=== PATIENT | female | born 1955 | race Caucasian/White ===

== ENCOUNTER → 2018-09-14 | Outpatient (CLI) | payer OTHER ==
[~2018-09-14] MED LIST: ETODOLAC 400 M400 M1 PO; NORVASC5 MG PO; OMEPRAZOLE 20 M20 M1 PO; SYNTHROID125 MC1 PO
--- NOTE | 2018-09-20 11:03 | EKG ---
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1955 Requested By: González Bertrand Order Number: [id number] Reading MD: Temo Aguilera Measurements Intervals [place] Rate: 66 P: 51 AL: 167 QRS: 15 QRSD: 100 T: 51 QT: 416 QTc: 436 Interpretive Statements Sinus bradycardia Atrial premature complexes consecutive No previous ECG available for comparison Electronically Signed On 09-20-2018 11:02:57 [employer] by Temo Aguilera [email or web address] <ELECTRONICALLY SIGNED> By: Temo Aguilera MD, [facility] 09/20/18 1102 0942 0942 Temo Aguilera MD, FACC /EPI
== END ==
LOC: M.MRI 16:57
DX: S83.241A Other tear of medial meniscus, current injury, right knee, initial encounter (principal); S83.281A Other tear of lateral meniscus, current injury, right knee, initial encounter; M17.11 Unilateral primary osteoarthritis, right knee; M76.891 Other specified enthesopathies of right lower limb, excluding foot; M25.461 Effusion, right knee; M22.41 Chondromalacia patellae, right knee; X58.XXXA Exposure to other specified factors, initial encounter; Y93.89 Activity, other specified; Y92.89 Other specified places as the place of occurrence of the external cause; Y99.8 Other external cause status

== ENCOUNTER 2018-10-04 06:40 | Inpatient (IN) | payer OTHER ==
[2018-09-20 09:36] LABS: HEMATOCRIT 44.3 % (37.0-47.0); HEMOGLOBIN 14.8 gm/dL (12.0-15.0); MCH 30.7 pg (26.0-34.0); MCHC 33.5 g/dL (28.0-37.0); MCV 91.7 fL (80.0-100.0); MPV 8.7 fl. (7.2-11.1); RBC 4.83 mil/uL (4.20-5.00); RDW-CV 14.2 % (10.5-14.5); WBC 5.9 thou/uL (4.0-11.0)
[2018-09-20 09:46] LABS: URINE BILIRUBIN NEGATIVE (Negative); URINE BLOOD TRACE (Negative); URINE CLARITY CLEAR; URINE COLOR YELLOW; URINE GLUCOSE-RANDOM NEGATIVE (Negative); URINE KETONES NEGATIVE (Negative); URINE LEUKOCYTES-REFLEX NEGATIVE (Negative); URINE NITRITE-REFLEX NEGATIVE (Negative); URINE PROTEIN NEGATIVE (Negative); URINE UROBILINOGEN 0.2 E.U./dl (0.2-1.0)
[2018-09-20 09:51] LABS: ALBUMIN 3.9 g/dL (3.4-5.0); CREATININE 1.1 mg/dL (0.6-1.3); POTASSIUM 3.7 mmol/L (3.5-5.1); TOTAL BILIRUBIN 0.6 mg/dL (<0.1-1.0); TOTAL PROTEIN 7.5 g/dL (6.4-8.2)
[~2018-10-04] VITALS: Ht 182.9 cm; Wt 117.9 kg
[2018-10-04] MEDS ORDERED: ZANTAC 150MG T150 MG PO (10:14)
[2018-10-04 10:18] VITALS: BP 154/72
[2018-10-04] MEDS ORDERED: CIPRO500 MG PO (10:30)
[2018-10-05] VITALS (8 sets, daily range): BP systolic 134–155; BP diastolic 59–76
[2018-10-05 04:10] LABS: HEMATOCRIT 41.7 % (37.0-47.0); HEMOGLOBIN 13.8 gm/dL (12.0-15.0)
[2018-10-05] MEDS ORDERED: XARELTO10 MG PO (09:01)
[2018-10-05] MEDS ORDERED: HYDROCODON-ACE1 EAC7 PO (09:01)
[2018-10-06] VITALS (7 sets, daily range): BP systolic 123–152; BP diastolic 60–67
[2018-10-06 05:24] LABS: HEMOGLOBIN 12.7 gm/dL (12.0-15.0)
[2018-10-06] MEDS ORDERED: PERCOCET PO (11:45)
--- NOTE | 2018-10-11 23:20 | OP ---
[address] [address] OPERATIVE REPORT Name: JUNG RADER Room: [address] IN .R.#: [id number] Admission: 10/04/18 Attend Phys: Lisa Harmon Discharge: 10/06/18 Date of : 59 Report #: [id number] THIS REPORT FOR: //name// CC: Katie Ureña DATE OF SERVICE: 10/04/2018 PREOPERATIVE DIAGNOSIS: Right knee osteoarthritis. POSTOPERATIVE DIAGNOSIS: Right knee osteoarthritis. PROCEDURE: Right total knee arthroplasty. SURGEON: González Bertrand II, D.O. MAILROOM SUPERVISOR: JIM Strauss ANESTHESIA: General endotracheal. ESTIMATED BLOOD LOSS: 50 mL. ANTIBIOTICS: Ancef preoperatively. DRAINS: Medium Hemovac. COMPLICATIONS: None. CONDITION: The patient is stable to recovery room. IMPLANTS: Listed in the operative record and progress note. BRIEF HISTORY: The patient was seen in the preoperative area. Preoperative H and P was performed. Site was marked, questions were answered. Risks and benefits were discussed with the patient in detail about surgery. The patient wished to proceed assumed all risks. DESCRIPTION OF PROCEDURE: The patient was taken to the operative suite and placed supine on the operating table, given appropriate anesthesia. A well-padded tourniquet was applied to the upper thigh, which was inflated to 300 mmHg after gravity exsanguination. The operative knee was sterilely prepped and draped. Surgery began by a midline incision. This was carried down to the subcutaneous tissues. A medial parapatellar arthrotomy was performed and carried down to bone. The patella was then everted and excess soft tissue removed from around the femur. Femoral cutting block was then applied, checked [facility] [address] [place] [address] OPERATIVE REPORT Name: JUNG RADER Francis Room: [address]#: [id number] Admission: 10/04/18 Attend Phys: Lisa Harmon Discharge: 10/06/18 Date of : 59 Report #: [id number] with a drop florencio for rotational alignment, pinned in appropriate position and appropriate cuts were made. A 4-in-1 cutting block was then applied, checked for rotational alignment, pinned in appropriate position and appropriate cuts were made. Tibia was then exposed. Then excess meniscus was removed. Retractors were placed along the collateral ligaments. The tibial cutting block was applied, pinned in appropriate position, checked with a drop florencio for rotational alignment and slope and appropriate cut was made. The tibial bone was removed. The tibial base plate was then applied and checked for rotational alignment with the drop florencio and pinned in appropriate position. The femur was then applied and box cut was reamed. This was then trialed with the appropriate spacer, which showed excellent fit and fill, excellent stability of the knee throughout all range of motion. The patella was then reamed in appropriate fashion and sized to appropriate size. Three peg holes were drilled and it was then trialed and found to have excellent flexion and extension and excellent tracking of the patella within the groove. These trials were then removed. The tibia was punched in appropriate fashion. Bone ends were cleansed with Pulsavac irrigation. Cement was mixed and applied to the final implants. These were then malleted in position and held the knee in extension and compressed to allow cement to cure. After it cured, excess was removed utilizing a [place] and osteotome. The wound was then copiously irrigated and the final spacer was then malleted in position. The tourniquet was deflated. Hemostasis was obtained with electrocautery. Pain cocktail was injected. PRP gel was sprayed through internal aspects of the knee. Medium Hemovac drain was applied. Capsule was closed with #2 FiberWire and #1 Vicryl in [id number] fashion. Skin was closed with 2-0 Vicryl and running 3-0 Monocryl. Dermabond and sterile dressing was applied. Jeet wrap and PolarCare applied. The patient transported to recovery room in stable condition. Counts were correct throughout the procedure. <ELECTRONICALLY SIGNED> By: González Bertrand II, 10/11/18 2320 0819 1009Robsierra Bertrand II DO /nt
== END 2018-10-06 14:06 | disposition home health service (06) | DRG 470 ==
LOC: M.PRE → M.SUR 06:40 → EDSTATUS 06:40 → M.PRE 06:42 → M.TBA 09:44 → M.PRE 10:13 → M.ORTHSURG 14:52 → M.PRE 16:57 → M.ORTHSURG 10-06 14:06
PROVIDERS: Orthopaedic Surgery; ADMIT Internal Medicine
PROC: 0SRC069 Replacement of Right Knee Joint with Oxidized Zirconium on Polyethylene Synthetic Substitute, Cemented, Open Approach (ICD-10-PCS; principal; 2018-10-04)
DX: M17.11 Unilateral primary osteoarthritis, right knee (principal); E03.9 Hypothyroidism, unspecified; I10 Essential (primary) hypertension; Z90.710 Acquired absence of both cervix and uterus; Z86.711 Personal history of pulmonary embolism

== ENCOUNTER → 2019-03-06 | Outpatient (CLI) | payer OTHER ==
[~2019-03-06] MED LIST changes: +CIPRO500 MG PO; +HYDROCODON-ACE1 EAC7 PO; +PERCOCET PO; +XARELTO10 MG PO; +ZANTAC 150MG T150 MG PO
== END ==
LOC: M.MRI 03-05 17:30
DX: S83.282A Other tear of lateral meniscus, current injury, left knee, initial encounter (principal); M25.762 Osteophyte, left knee; M71.22 Synovial cyst of popliteal space [Baker], left knee; X58.XXXA Exposure to other specified factors, initial encounter; Y93.89 Activity, other specified; Y92.89 Other specified places as the place of occurrence of the external cause; Y99.8 Other external cause status

== ENCOUNTER 2019-04-02 07:02 | Inpatient (IN) | payer OTHER ==
[2019-03-21 09:12] LABS: HEMOGLOBIN 14.2 gm/dL (12.0-15.0); MCH 30.5 pg (26.0-34.0); MCHC 33.9 g/dL (28.0-37.0); MCV 89.9 fL (80.0-100.0); MPV 8.5 fl. (7.2-11.1); RBC 4.67 mil/uL (4.20-5.00); RDW-CV 14.8 % (10.5-14.5)
[2019-03-21 09:15] LABS: URINE BILIRUBIN NEGATIVE (Negative); URINE BLOOD 1+ (Negative); URINE CLARITY CLEAR; URINE COLOR YELLOW; URINE GLUCOSE-RANDOM NEGATIVE (Negative); URINE KETONES NEGATIVE (Negative); URINE LEUKOCYTES-REFLEX NEGATIVE (Negative); URINE NITRITE-REFLEX NEGATIVE (Negative); URINE PROTEIN NEGATIVE (Negative); URINE SPECIFIC GRAVITY <= 1.005 (1.005-1.030); URINE UROBILINOGEN 0.2 E.U./dl (0.2-1.0)
[2019-03-21 09:20] LABS: PROTIME 10.1 Seconds (9.20-11.50)
[2019-03-21 09:23] LABS: SQUAMOUS 0-3 Few /LPF (0-3)
[2019-03-21 09:24] LABS: BACTERIA-REFLEX 1-9 Few /HPF (None Seen); CASTS None Seen /LPF (None Seen); CRYSTALS None Seen /LPF (None Seen); MUCUS None Seen strn/LPF (None Seen); URINE RBC 0-2 Rare /HPF (0-2); URINE WBC-REFLEX 0-5 Rare /HPF (0-5)
[2019-03-21 09:33] LABS: ALBUMIN 3.8 g/dL (3.4-5.0); CALCIUM 8.6 mg/dL (8.5-10.1); CREATININE 1.1 mg/dL (0.6-1.3); POTASSIUM 4.2 mmol/L (3.5-5.1); TOTAL BILIRUBIN 0.6 mg/dL (<0.1-1.0); TOTAL PROTEIN 7.6 g/dL (6.4-8.2)
--- NOTE | 2019-03-21 11:37 | EKG ---
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
[~2019-04-02] VITALS: Ht 180.3 cm; Wt 117.9 kg
--- NOTE | ~2019-04-02 | OP ---
[facility] [address] [place] [address] OPERATIVE REPORT Name: JUNG RADER Room: [address] M.R.#: [id number] Admission: 04/02/19 Attend Phys: Lisa Harmon Discharge: Date of : 59 Report #: [id number] THIS REPORT FOR: //name// CC: Katie Ureña DATE OF SERVICE: 04/02/2019 PREOPERATIVE DIAGNOSIS: Left knee osteoarthritis. POSTOPERATIVE DIAGNOSIS: Left knee osteoarthritis. PROCEDURE: Left total knee arthroplasty. SURGEON: González Bertrand II, DO. CONFERENCE RESERVATIONIST: JIM Strauss. ANESTHESIA: General endotracheal. ESTIMATED BLOOD LOSS: 50 mL. ANTIBIOTICS: Ancef preoperatively. DRAINS: Medium Hemovac. COMPLICATIONS: None. CONDITION: The patient is stable to recovery room. IMPLANTS: Listed in the operative record and progress note. BRIEF HISTORY: The patient had previous right total knee arthroplasty done over the last 6 months, states he has had extremely good results, elected to proceed with a left total knee replacement. Has proceeded with injections and anti-inflammatories without relief and has failed conservative management. The patient's site was marked. Questions were answered. Risks and benefits were discussed with the patient in detail about the surgery. The patient wished to proceed and assuming all risks. DESCRIPTION OF PROCEDURE: The patient was taken to the operative suite and placed supine on the operating table and given appropriate anesthesia. A well-padded tourniquet applied to upper thigh, was inflated to 300 mmHg after gravity exsanguination. The operative knee was sterilely prepped and draped. Surgery began by midline incision. This was carried down through [address] [address] OPERATIVE REPORT Name: JUNG RADER CHAVEZ Room: [address] M.R.#: [id number] Admission: 04/02/19 Attend Phys: Lisa Harmon Discharge: Date of : 59 Report #: [id number]. A medial parapatellar arthrotomy was performed and carried down to bone. Patella was then everted and excess soft tissue removed from the femur. The femoral cutting block was then applied, checked with a drop florencio for rotational alignment, pinned in appropriate position and appropriate cuts were made. A 4-in-1 cutting block was then applied, checked for rotational alignment, pinned in appropriate position and appropriate cuts were made. The tibia was then exposed. Excess meniscus was removed. Retractor was placed along the collateral ligaments. The tibial cutting block was applied, pinned in appropriate position, checked with a drop and rotational alignment and slope and appropriate cut was made. The tibial bone was removed. Tibial base plate was then applied, checked for rotational alignment with a drop florencio, pinned in appropriate position. Femur was then applied and a box cut was reamed. This was then trialed with the appropriate spacer, which showed excellent fit and fill and excellent stability with knee through all range of motion. The patella was then reamed in appropriate fashion and sized for appropriate size. Three peg holes were drilled and it was then trialed and showed excellent flexion and extension and excellent tracking of the patella within the groove. These trials were then removed. The tibia was punched in appropriate fashion. Bone ends were cleansed with Pulsavac irrigation and cement was mixed and applied to the final implants. Knee was then malleted in position and held the knee in extension and compressed to allow the cement to cure. After it cured, excess was removed using a [place] and osteotome. The wound was then copiously irrigated and the final spacer was then malleted into position. Tourniquet was deflated. Hemostasis was obtained with electrocautery. The pain cocktail was injected. PRP gel was sprayed throughout the internal aspects of the knee. A median Hemovac drain was applied. Capsule was closed with #2 FiberWire and 1 Vicryl in [id number] fashion. Skin was closed with 2-0 Vicryl and running 3-0 Monocryl. Dermabond and sterile dressing applied. Jeet wrap and PolarCare applied. The patient transported to recovery room in stable condition. Counts were correct throughout the procedure. By: 0811 [id number] Bertrand II, DO /nt
[2019-04-02 10:47] VITALS: BP 142/78
[2019-04-02 12:30] VITALS: BP 145/67
[2019-04-02 16:30] VITALS: BP 108/59
[2019-04-02 19:35] VITALS: BP 116/62
[2019-04-03 00:40] VITALS: BP 126/60
[2019-04-03 04:03] VITALS: BP 112/59
[2019-04-03 04:17] LABS: HEMATOCRIT 35.6 % (37.0-47.0); HEMOGLOBIN 11.7 gm/dL (12.0-15.0)
[2019-04-03 08:00] VITALS: BP 124/67
[2019-04-03 12:31] VITALS: BP 124/67
[2019-04-03] MEDS ORDERED: PERCOCET PO (13:11)
[2019-04-03] MEDS ORDERED: XARELTO10 MG PO (13:12)
== END 2019-04-03 16:25 | disposition home health service (06) | DRG 470 ==
LOC: M.TBA 07:02 → M.PRE 07:36 → M.ORTHSURG 12:16 → M.PRE 12:19 → M.ORTHSURG 04-03 16:25
PROVIDERS: Orthopaedic Surgery; ADMIT Internal Medicine
PROC: 0SRD0J9 Replacement of Left Knee Joint with Synthetic Substitute, Cemented, Open Approach (ICD-10-PCS; principal; 2019-04-02)
DX: M17.12 Unilateral primary osteoarthritis, left knee (principal); D68.59 Other primary thrombophilia; I10 Essential (primary) hypertension; E03.9 Hypothyroidism, unspecified; Z96.651 Presence of right artificial knee joint; K21.9 Gastro-esophageal reflux disease without esophagitis; Z90.710 Acquired absence of both cervix and uterus